=== PATIENT | female | born 1990 | race Two or more races ===

== ENCOUNTER 2017-03-30 11:39 | Emergency (ER) | payer BC ==
[~2017-03-30 11:39] MED LIST: FLEXERIL10 MG PO; MOTRIN600 MG PO; NO HOME MEDS
[2017-03-30] MEDS ORDERED: ADVIL200 M3 PO (12:13)
[2017-03-30] MEDS ORDERED: BIRTH CONTROL (12:15)
[2017-03-30 12:55] LABS: URINE BILIRUBIN NEGATIVE (NEG); URINE BLOOD NEGATIVE (NEG); URINE GLUCOSE (UA) NEGATIVE (NEG); URINE KETONE NEGATIVE (NEG); URINE LEUKOCYTE ESTERASE NEGATIVE (NEG); URINE NITRITE NEGATIVE (NEG); URINE PROTEIN NEGATIVE (NEG)
[2017-03-30 12:56] LABS: BASO % 0.4 % (0-2); EOS % 2.3 % (0-7); EOSINOPHIL ABSOLUTE COUNT 0.2 tho/cmm (0.0-0.7); HCT-HEMATOCRIT 37.3 % (34.0-49.0); HGB-HEMOGLOBIN 12.6 gm/dl (12.0-15.5); IMMATURE GRANULOCYTES ABSOLUTE 0.04 tho/cmm (0-0.03); IMMATURE GRANULOCYTES PERCENT 0.4 % (0-0.3); LYMPH % 33.4 % (20-45); LYMPH ABSOLUTE COUNT 3.3 tho/cmm (0.8-4.5); MCH (MEAN CORPUSCULAR HGB) 29.2 pg (28.0-32.0); MCHC MEAN CORPUSCULAR HGB CONC 33.8 % (32.0-36.0); MCV (MEAN CELL VOLUME) 86.3 fl (82.0-96.0); MEAN PLATELET VOLUME 10.8 cmc (9.4-12.4); MONO % 6.7 % (0-12); MONOCYTE ABSOLUTE COUNT 0.7 tho/cmm (0.0-1.2); NEUTROPHIL ABSOLUTE COUNT 5.6 tho/cmm (1.6-8.0); NEUTROPHIL-AUTOMATED 5.6 tho/cmm (1.6-8.0); NEUTROPHILS % 56.8 % (40-80); PLATELET COUNT 254 tho/cmm (150-450); RED BLOOD COUNT 4.32 mil/cmm (4.00-5.20); WHITE BLOOD COUNT 9.9 tho/cmm (4.0-10.0)
[2017-03-30 12:57] LABS: URINE APPEARANCE CLEAR; URINE COLOR YELLOW
[2017-03-30] MEDS ORDERED: IBUPROFEN600 M1 PO (14:26)
== END 2017-03-30 14:35 ==
LOC: EDMED 11:39
PROVIDERS: Emergency Medicine
DX: E28.2 Polycystic ovarian syndrome (principal)
CPT/HCPCS: P9612